=== PATIENT | female | born 1945 | race Caucasian/White ===

== ENCOUNTER → 2022-08-12 09:16 | Outpatient (BNVA) | payer OTHER, SELFPAY | PROVIDERS: PCP Internal Medicine; Visit Provider Nurse Practitioner Family | DX: R29.898 Other symptoms and signs involving the musculoskeletal system (principal); G20 Parkinson's disease ==

== ENCOUNTER 2022-12-09 09:23 | Outpatient (AMB) | payer OTHER, SELFPAY ==
[2022-12-09 09:25] VITALS: BP 110/72; PULSE 65; O2SAT 96; BMI 35.7
--- NOTE | 2022-12-09 09:25 | A.OFFVIS_ITS ---
Intake Vital Signs 12/09/22 09:25 Height 5 ft 3 in Weight 201 lb 8 oz BMI 35.7 BP 110/72 Blood Pressure Location Rt brachial Position Sitting Pulse 65 Pulse Source Pulse Oximeter Pulse Oximetry (%) 96 Oxygen Delivery Method Room Air Intake Visit Reasons: 4m f/upress in head/tremor/weakness - Confirmed Intake Note: Pt presents as a 4 month f/u. pt states things are the same. Physics Instructor Required: No Accompanied by: Daughter Allergies No Known Allergies Allergy (Verified 12/09/22 09:30) Medication List - Last Reconciled 12/09/22 by JULISSA Mg alendronate 70 mg PO QWEEK alprazolam 0.25 mg orally 1 tab 30 minutes prior to MRI, may repeat ix's 1; 1 day aspirin 81 mg PO DAILY atorvastatin 20 mg PO DAILY carbidopa-levodopa 25-100 mg 1 tab PO BID 30 days cholecalciferol (vitamin D3) 50 mcg PO DAILY docusate sodium (Dulcolax Stool Softener (docusate)) 100 mg PO DAILY PRN lisinopril 10 mg PO BID metoprolol succinate ER 25 mg PO DAILY multivitamin (Daily Multi-Vitamin tablet) 1 tab PO DAILY sennosides (senna) 8.6 mg PO DAILY HPI HPI Comments History of Present Illness Details 77 -yr-old female presents for f/u visit, accompanied by her dtr Pt denies any significant interval medical history changes. Pt's current PD medication regimen: CD-LD 25-100mg 1 tab bid- which is still helping Do medication effects last between doses: yes She is not having the head pressure sensation- states only occurs when her BP is elevated. ADL's: Ind but slow- has someone to help her if needed Swallowing: No issues Drooling: Some nocturnal drooling. Orthostatic lightheadedness: Can feel lightheadedness when stands up- so stands up slowly. But feels better since doing a course of vestibular tx. Constipation: Yes, she manages with her stool softeners- switches them from to time. Has GI consult in Dec. Freezing: None Stiffness: Stable Tremor: Some days tremor is just occasional, other days more noticeable. Falls: Nonel Hallucinations: None Memory: Stable- some forgetfulness at times Sleep: Wakes up 3-4 x's per night- then can easily fall back asleep. Exercise: Walking every day. PFSH Family History Father Throat cancer Mother Heart problem Brother Heart problem Hypertension Sister Heart problem Hypertension Social History (Updated 12/09/22 @ 09:32 by Keely Lehman CMA) Alcohol intake: never Patient Tobacco Use Status: Never used Tobacco Review of Systems Const All systems reviewed & are unremarkable except as noted in HPI and below Physical Exam Vital Signs: Last Vital Signs Pulse 65 12/09/22 09:25 BP 110/72 12/09/22 09:25 Pulse Ox 96 12/09/22 09:25 Oxygen Delivery Method Room Air 12/09/22 09:25 BMI result Body Mass Index 35.7 Const General: cooperative and no acute distress Resp Effort & Inspection: normal respiratory effort and able to speak in complete sentences Neuro Other: A&O Pleasant Affect Decreased expression with right upper and lower facial droop. RUE mild rest tremor No postural tremor. FFM- RUE mild bradykinesia Mild RUE tone. Foot taps- R > L mild bradykinesia. Slight stoop, no arm swing, short steps, steady gait. Assessment & Plan Assessment & Plan (1) Parkinson's disease: Code(s): G20 - Parkinson's disease (2) Constipation: Code(s): K59.00 - Constipation, unspecified Plan Continue Carbidopa-Levodopa 25-100mg 1 tab bid. Continue increased fluids, such as Gatorade (or equivilant) 16-20oz qd to usual fluid intake. Do foot taps prior to standing. Continue daily walks. Concur w/ GI consult Monitor migraine. Pt to f/u in 4 months or sooner with any new/worsening s/s. Coding Level of Care Code Est Pt Level 4 (28615) Diagnoses Parkinson's disease G20 Constipation K59.00
== END 2022-12-09 09:58 | disposition home or self-care (01) ==
PROVIDERS: Visit Provider Nurse Practitioner Family
DX: G20 Parkinson's disease (principal); K59.00 Constipation, unspecified
CPT/HCPCS: 99214

== ENCOUNTER → 2022-12-09 09:23 | Outpatient (BNVA) | payer OTHER, SELFPAY | PROVIDERS: Visit Provider Nurse Practitioner Family | DX: R25.1 Tremor, unspecified (principal); R29.898 Other symptoms and signs involving the musculoskeletal system; G20 Parkinson's disease ==

== ENCOUNTER 2023-04-07 07:54 | Outpatient (AMB) | payer OTHER, SELFPAY ==
[2023-04-07 07:55] VITALS: BP 126/80; PULSE 61; O2SAT 95; BMI 35.4
--- NOTE | 2023-04-07 07:55 | MHC.OFFVIS ---
Intake Vital Signs 04/07/23 07:55 Height 5 ft 3 in Weight 200 lb BMI 35.4 BP 126/80 Blood Pressure Location Rt brachial Position Sitting Pulse 61 Pulse Source Pulse Oximeter Pulse Oximetry (%) 95 Oxygen Delivery Method Room Air Intake Visit Reasons: 4m f/u press in head/tremor/weakness - Conf Intake Note: Patient presents for 4 month follow up. I think my condition is getting worse Allergies No Known Allergies Allergy (Verified 04/07/23 07:57) Medication List - Last Reconciled 04/07/23 by JULISSA Mg alendronate 70 mg PO QWEEK alprazolam 0.25 mg orally 1 tab 30 minutes prior to MRI, may repeat ix's 1; 1 day aspirin 81 mg PO DAILY atorvastatin 20 mg PO DAILY bisacodyl 5 mg PO BEDTIME carbidopa-levodopa 25-100 mg 1 tab PO BID 30 days cholecalciferol (vitamin D3) 50 mcg PO DAILY docusate sodium (Dulcolax Stool Softener (docusate)) 100 mg PO DAILY PRN lisinopril 10 mg PO BID metoprolol succinate ER 25 mg PO DAILY multivitamin (Daily Multi-Vitamin tablet) 1 tab PO DAILY sennosides (senna) 8.6 mg PO DAILY HPI HPI Comments History of Present Illness Details 77-yr-old female presents for f/u visit, accompanied by her dtr Pt denies any significant interval medical history changes. Pt's current PD medication regimen: CD-LD 25-100mg 1 tab bid- which is still helping Do medication effects last between doses: yes She is having episodes of head pressure (like her head will explode), feeling weak, lightheaded, sweating, and elevated BP (SBP up to 160s)- she has to lay down x's 1/2 hr or longer. This can occur once a day but can occur a couple of times a day. She has frequent head pressure. Sometimes takes an extra lisinopril of SBP is > 160. She has a h/o severe headaches not a/w photo/phonophobia or N/V prior to coming to the [place] 22 yrs ago. ADL's: Ind but slow- has someone to help her if needed- more so w/ bra, diaper, socks Swallowing: No issues Drooling: Some nocturnal drooling. Orthostatic lightheadedness: Can feel lightheadedness when stands up- so stands up slowly, also when BP is higher. Constipation: Yes, she manages with her stool softeners- switches them from to time. Saw GI- who tried a different tx- but pt returned to he rusual regimen. Freezing: None Stiffness: Stable Tremor: Tremor is more noticeable. Falls: None Hallucinations: None Memory: Stable- some forgetfulness at times Sleep: Wakes up 3-4 x's per night- then can easily fall back asleep. Exercise: Walking every day. PFSH Family History Father Throat cancer Mother Heart problem Brother Heart problem Hypertension Sister Heart problem Hypertension Social History Alcohol intake: never Patient Tobacco Use Status: Never used Tobacco Review of Systems Const All systems reviewed & are unremarkable except as noted in HPI and below Physical Exam Vital Signs: Last Vital Signs Pulse 61 04/07/23 07:55 BP 126/80 04/07/23 07:55 Pulse Ox 95 04/07/23 07:55 Oxygen Delivery Method Room Air 04/07/23 07:55 BMI result Body Mass Index 35.4 Const General: cooperative and no acute distress Resp Effort & Inspection: normal respiratory effort and able to speak in complete sentences Neuro Other: A&O Pleasant Affect Decreased expression with right upper and lower facial droop. RUE mild rest tremor No postural tremor. FFM- RUE mild bradykinesia Mild RUE tone. Foot taps- R > L mild bradykinesia. Slight stoop, no arm swing, short steps, steady gait. Assessment & Plan Assessment & Plan (1) Parkinson's disease without dyskinesia: Code(s): G20.A1 - Parkinson's disease without dyskinesia, without mention of fluctuations (2) Migraine without aura: Code(s): G43.009 - Migraine without aura, not intractable, without status migrainosus Plan For PD: Offered to increase CD-LD to 1 tab tid, however pt wants to think about it. For now, continue Carbidopa-Levodopa 25-100mg 1 tab bid. Continue increased fluids, such as Gatorade (or equivalent) 16-20oz qd to usual fluid intake. Continue daily walks. For Migraine: I believe pt's episodes of headcahe, weakness, elevated BP are migraine attacks in setting of near constant headache/migraine. I would avoid triptans d/t pt's h/o HTN, HLD, but speciifcally as these attacks are a/w elevated BP w/ SBP >160. Trial Ubrogepant (Ubrelvy) 100mg tab, 1/2 - 1 tab (50-100mg) at onset of headache, may repeat in 2 hours. Max of 2 tabs (200mg) per 24 hours. Pt to f/u in 4 months or sooner with any new/worsening s/s. Medications: New ubrogepant (Ubrelvy) take at onset of migraine, may repeat in 2hrs 50 - 100 mg (0.5 - 1 x 100 mg) PO ONCE 30 days PRN 16 tabs 3RF migraine headache G43.009 - Migraine without aura, not intractable, without status migrainosus Coding Level of Care Code Est Pt Level 4 (65407) Diagnoses Parkinson's disease without dyskinesia G20.A1 Migraine without aura G43.009
== END 2023-04-07 08:49 | disposition home or self-care (01) ==
PROVIDERS: PCP Internal Medicine; Visit Provider Nurse Practitioner Family
DX: G20.A1 Parkinson's disease without dyskinesia, without mention of fluctuations (principal); G43.009 Migraine without aura, not intractable, without status migrainosus
CPT/HCPCS: 99214

== ENCOUNTER → 2023-04-07 07:54 | Outpatient (BNVA) | payer OTHER, SELFPAY | PROVIDERS: PCP Internal Medicine; Visit Provider Nurse Practitioner Family | DX: R25.1 Tremor, unspecified (principal); R29.898 Other symptoms and signs involving the musculoskeletal system ==

== ENCOUNTER 2023-08-11 07:44 | Outpatient (AMB) | payer OTHER, SELFPAY ==
--- NOTE | 2023-08-11 07:56 | MHC.OFFVIS ---
Vital Signs 08/11/23 07:58 Height 5 ft 3 in Weight 200 lb BMI 35.4 BP 122/74 Blood Pressure Location Rt brachial Position Sitting Pulse 56 Pulse Source Pulse Oximeter Pulse Oximetry (%) 97 Oxygen Delivery Method Room Air Intake Visit Reasons: 4 mo f/u - press in head/tremor-CONF Intake Note: Patient presents for 4 month follow up. Patient has no new issues or concerns Allergies No Known Allergies Allergy (Verified 08/11/23 08:01) HPI Comments Details: 77 -yr-old female presents for f/u visit, accompanied by her dtr. Pt denies any significant interval medical history changes. Pt's primary concerns are: She was noticing increased tremor, and reached out to us. So we increased the CD-LD form 1 tab bid to tid, and tremor does seem to be better. However, she is having difficulty initiating sleep. States her RUE shakes so much she cannot fall asleep. Her PCP did offer her Nortriptyline 10mg, however she did not start as she wanted to discuss w/ us first. Bedtime is 11pm. Pt's current PD medication regimen: CD-LD 25-100mg 1 tab tid. at 9am, 3pm, 9pm. Do medication effects last between doses: usually She is still having episode of pressure headache. Has not had an episode in the last 2 weeks, but can occur 1-2 x's per week. Has rec'd Ubrelvy but has not tried it yet. Baseline headache characteristic: head pressure (like her head will explode), feeling weak, lightheaded, sweating, and elevated BP (SBP up to 160s)- she has to lay down x's 1/2 hr or longer. This can occur once a day but can occur a couple of times a day. She has frequent head pressure. Sometimes takes an extra lisinopril of SBP is > 160. And has a h/o severe headaches not a/w photo/phonophobia or N/V prior to coming to the [place] 22 yrs ago. ADL's: Needing more help. Her RUE seems weaker. Swallowing: No issues Drooling: Some nocturnal drooling. Orthostatic lightheadedness: Brief, mild. Standing carefully. Constipation: Trying to manage w/ diet, using stool softener prn. . Freezing: None Stiffness: Stable Tremor: as above Falls: None, but can feel unstable at times. Has a 4 wheeled seated walker- can use inside but not outside, as when the walker rolls over a bump- she feels it on her head. Hallucinations: None Memory: Stable- some forgetfulness at times Sleep: as above Exercise: Walking some. [facility] Medical History (Updated 08/11/23 @ 08:09 by JULISSA Mg) Parkinson's disease Family History Father Throat cancer Mother Heart problem Brother Heart problem Hypertension Sister Heart problem Hypertension Social History Alcohol intake: never Patient Tobacco Use Status: Never used Tobacco Review of Systems Const All systems reviewed & are unremarkable except as noted in HPI and below Physical Exam Vital Signs: Last Vital Signs Pulse 56 08/11/23 07:58 BP 122/74 08/11/23 07:58 Pulse Ox 97 08/11/23 07:58 Oxygen Delivery Method Room Air 08/11/23 07:58 BMI result Body Mass Index 35.4 Const General: cooperative and no acute distress Resp Effort & Inspection: normal respiratory effort and able to speak in complete sentences Neuro Other: A&O Pleasant Affect Decreased expression with right upper and lower facial droop. RUE mild rest tremor No postural tremor. FFM- RUE mild bradykinesia Mild RUE tone. Foot taps- R > L mild bradykinesia. Slight stoop, right shoulder dropped, no arm swing, short steps, steady gait. 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 If this does not help the nocturnal tremor, increase to 1 tab qid (w/ last dose at bedtime). May trial Nortriptyline 10mg qhs for sleep- may help headaches as well. Monitro for worsening constipation. Continue increased fluids, such as Gatorade (or equivalent) 16-20oz qd to usual fluid intake. Continue stool softeners prn. Continue daily walks. Will request OT- for RUE tremors and ADL. Pt should establish care w/ a bun panner for routine skin checks owing to slight increased risk for skin cancer in PD. ? For Migraine: Try Ubrogepant (Ubrelvy) 100mg tab, 1/2 - 1 tab (50-100mg) at onset of headache, may repeat in 2 hours. Max of 2 tabs (200mg) per 24 hours. ? Pt to f/u in 4-6 months or sooner with any new/worsening s/s. Orders: Orders OT Evaluation and Treatment Today G20.A1 - Parkinson's disease without dyskinesia, without mention of fluctuations, R25.1 - Tremor, unspecified
[2023-08-11 07:58] VITALS: BP 122/74; PULSE 56; O2SAT 97; BMI 35.4
== END 2023-08-11 08:42 | disposition home or self-care (01) ==
PROVIDERS: PCP Internal Medicine; Visit Provider Nurse Practitioner Family
DX: G20.A1 Parkinson's disease without dyskinesia, without mention of fluctuations (principal); G43.009 Migraine without aura, not intractable, without status migrainosus
CPT/HCPCS: 99214

== ENCOUNTER → 2023-08-11 07:44 | Outpatient (BNVA) | payer OTHER, SELFPAY | PROVIDERS: PCP Internal Medicine; Visit Provider Nurse Practitioner Family ==

== ENCOUNTER 2024-02-16 08:00 | Outpatient (AMB) | payer OTHER, SELFPAY ==
--- NOTE | 2024-02-16 07:59 | MHC.OFFVIS ---
Vital Signs 02/16/24 08:00 Height 5 ft 3 in Weight 198 lb 2 oz BMI 35.1 BP 116/90 H Blood Pressure Location Lt brachial Position Sitting Pulse 58 Pulse Source Pulse Oximeter Pulse Oximetry (%) 94 Oxygen Delivery Method Room Air Intake Visit Reasons: 4 mo f/u - press in head/tremor-CONF Director Of Consumer Affairs Required: No Package Delivery Driver: Package Delivery Driver Present Accompanied by: Daughter Allergies No Known Allergies Allergy (Verified 02/16/24 08:05) HPI Comments Details: 78-yr-old female presents for f/u visit, accompanied by her dtr. Pt reports she has been having Bilateral L > R shoulder pain, X-ray was normal, and she has been referred to ortho- awaiting for an appt. Right has been better since doing PT, but left is worse. Pt's primary concerns are: She is feeling more weak- difficulty getting OOB and into bed. She is noticing her RUE feels weaker. She is having more difficulty initiating walking. Sometimes better than others. Pt's current PD medication regimen: CD-LD 25-100mg 1 tab tid at 9am, 3pm, 9pm. (eats meals 30 min after doses) ADL's: Needing help. Her RUE seems weaker. Swallowing: No issues Drooling: Some nocturnal drooling. Orthostatic lightheadedness: None- but standing up slowly. Constipation: Trying to manage w/ diet, using stool softener prn which helps. Freezing: Possibly Stiffness: As above Tremor: as above Falls: None. Has a 4 wheeled seated walker- can use inside but not outside, as when the walker rolls over a bump- she feels it on her head. Hallucinations: Maybe sometimes feels like something has passed by her. Memory: Stable- some forgetfulness at times Sleep: waking up 2-3 x's a night, sometimes cannot fall easily back asleep. May lay down frequently during the day. Just occasional dozes off for a few minutes. Exercise: Walking some about 2000 steps a day. She had home PT, but it is hard to do the arm exercises. She has not been having any recent pressure headache. States only has head heaviness when her BP is higher- but BP has been better as well. Has rec'd Ubrelvy but has not tried it yet. Baseline headache characteristic: head pressure (like her head will explode), feeling weak, lightheaded, sweating, and elevated BP (SBP up to 160s)- she has to lay down x's 1/2 hr or longer. This can occur once a day but can occur a couple of times a day. She has frequent head pressure. Sometimes takes an extra lisinopril of SBP is > 160. And has a h/o severe headaches not a/w photo/phonophobia or N/V prior to coming to the [place] 22 yrs ago. [facility] Medical History Parkinson's disease Family History Father Throat cancer Mother Heart problem Brother Heart problem Hypertension Sister Heart problem Hypertension Social History Alcohol intake: never Patient Tobacco Use Status: Never used Tobacco Physical Exam Vital Signs: Last Vital Signs Pulse 58 02/16/24 08:00 BP 116/90 H 02/16/24 08:00 Pulse Ox 94 02/16/24 08:00 Oxygen Delivery Method Room Air 02/16/24 08:00 BMI result Body Mass Index 35.1 Const General: cooperative and no acute distress Resp Effort & Inspection: normal respiratory effort and able to speak in complete sentences Neuro Other: A&O Pleasant Affect Decreased expression with right upper and lower facial droop. RUE mild rest tremor No postural tremor. FFM- RUE mild bradykinesia Mild RUE tone. Foot taps- R > L mild bradykinesia. Slight stoop, right shoulder dropped, no arm swing, shorter steps, steady gait. 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 For now, continue CD-LD to 1 tab tid. Continue increased fluids, such as Gatorade (or equivalent) 16-20oz qd to usual fluid intake. Continue stool softeners prn. Continue daily walks. Will request OT- for RUE tremors and ADL. Pt should establish care w/ a home health care physician for routine skin checks owing to slight increased risk for skin cancer in PD. ? For Migraine: If returns, try Ubrogepant (Ubrelvy) 100mg tab, 1/2 - 1 tab (50-100mg) at onset of headache, may repeat in 2 hours. Max of 2 tabs (200mg) per 24 hours. ? Pt to f/u in 4-6 months or sooner with any new/worsening s/s. Coding Level of Care Code Est Pt Level 4 (00654) Diagnoses Parkinson's disease without dyskinesia G20.A1 Migraine without aura G43.009 Tremor R25.1
[2024-02-16 08:00] VITALS: BP 116/90; PULSE 58; O2SAT 94; BMI 35.1
== END 2024-02-16 08:59 | disposition home or self-care (01) ==
PROVIDERS: PCP Internal Medicine; Visit Provider Nurse Practitioner Family
DX: G20.A1 Parkinson's disease without dyskinesia, without mention of fluctuations (principal); G43.009 Migraine without aura, not intractable, without status migrainosus; R25.1 Tremor, unspecified
CPT/HCPCS: 99214

== ENCOUNTER → 2024-02-16 08:00 | Outpatient (BNVA) | payer OTHER, SELFPAY | PROVIDERS: PCP Internal Medicine; Visit Provider Nurse Practitioner Family | DX: G20.A1 Parkinson's disease without dyskinesia, without mention of fluctuations (principal); R25.1 Tremor, unspecified; G43.009 Migraine without aura, not intractable, without status migrainosus ==

== ENCOUNTER 2024-08-30 09:15 | Outpatient (AMB) | payer OTHER, SELFPAY ==
--- OUTSIDE RECORDS SUMMARY | 2024-08-30 09:30 | XMS_ITS | Data Portability ---
Author Organization [facility] Aguila Rebolledo [facility], [facility] Address [address] [place] [address] Care Team Providers Care Professional Sports Scout Name Role Phone JOSE CARLOS CRUZ Primary Care Provider Assessment Encounter Date Assessment Date Assessment LastModified by Organization Details LastModified Time 02/19/2024 02/19/2024 Dx:Left shoulder pain, radiculitis vversus rotator cuff origin Interval History:78-year-old woman, several month history of atraumatic onsset left shoulder pain, difficulty using the arm. Has right-sided Parkinson's and so she is dependent on the left side for activity. SocHx: nonsmoker, nondrinker Past Medical/Surgical History/Meds/Allerg ies reviewed and charted ROS: negative Physical Exam: afebrile, vital signs stable, in no apparent distress, oriented to person/place/time. Gait symmetric. Skin intact without erythema. Heart RRR Lungs: clear Abdomen soft, nontender. LeftSHOULDER: no redness, warmth, deformity. Range of motion Limited by pain, minimal active motion. Strength 5/5 all muscle groups. Apprehension negative. Impingement sign Positive. Acromioclavicular joint nontender without irritability with cross body adduction. Neurovascular Exam wnl. Contralateral SHOULDER: no redness, warmth, deformity. Range of motion full in all planes with no stiffnes. Strength 5/5 all muscle groups. Apprehension negative. Impingement sign negative. Acromioclavicular joint nontender without irritability to cross body adduction. Neurovascular Exam wnl. New Studies: Multiple views left shoulder benign, no GH arthritis, no head migration. Cervical lateral shows advanced C4-5-6-7 collapse Impression:Left shoulder pain, rotator cuff origin versus neurogenic Plan: 1.Diagnostic/therap eutic injection performed subacromial left shoulder 2. Follow-up 1 week to check response to injection, move forward wiith cervical or shoulder advanced imaging as indicated [facility] speech recognition cnc service engineer software was used to create portions of this document. An attempt at proofreading has been made to minimize errors. Please call for corrections. [email or web address] Not available 02/19/2024 10:15:17 Plan of Treatment Reminders Order Date Submit Date Provider Last Modified By Organization Details Last Modified Time Details Appointments None recorded. Lab None recorded. Referral physical therapist referral - early degenerativ e cuff ROM and impingement ptogram [address] [facility], [address] [place] [address], [place], [address], 5 13:17:11 Procedures None recorded. Surgeries None recorded. Imaging MRI, shoulder, w/o contrast - question Left shoulder rotator cuff tear 2023 024 [facility] ([facility] [address], [place], [address], 4 12:06:51 XR, shoulder, 2 or more view - room 211, left shoulder, axillary and outlet only 2023 024 [email or web address] [facility], [address], [address], [place], [address], 4 16:06:12 XR, cervical spine, 1 view - room 211, lateral c spine 2023 024 [email or web address] [facility], [address], [address], [place], [address], 4 16:06:12 Medication Orders None recorded. Patient TargetsNo targets recorded. Patient InstructionsNo instructions recorded. Reason for Referral Physical Therapist Referral for Rotator cuff arthropathy of left shoulder early degenerative cuff ROM and impingement ptogram Referring Physician: Kendall Randhawa, Orthopedic Surgery, Encounter Date: 05/10/2024 Results Created Date Observation Date Name Description Value Unit Range Abnormal Flag Note LastModifiedBy Organization Detail LastModifiedTime 02/19/20 24 02/19/2024 XR, dorcas genao, 2 or more view [email or web address]:/ [email or web address] ?Encry pted=s hAaTro YD8dLq bEUv6g %2BXZw aYqtaq 0bqfl% 2Fg9IQ a4ajBk vP9nXo QUaueC m3YtLR FvZlgJ JJ8mAn HZtai3 7r3319 AC0Kqa H%2BFV aSjKiQ trMwF INTERFACE [facility] [address], [place], [address], 02/19/2024 10:04:26 02/19/20 24 02/19/2024 XR, dorcas genao, 2 or more view [email or web address] ?Encry pted=s hAaTro YD8dLq bEUv6g %2BXZw aYqtaq 0bqfl% 2Fg9IQ a4ajBk vP9nXo QUaueC m3YtLR FvZlgJ JJ8mAn HZtai3 4j8467 AC0Kqa H%2BFV aSjKiQ trMwF INTERFACE [facility] [address], [place], [address], 02/19/2024 10:04:27 02/19/20 24 02/19/2024 XR, cervi shani spine , 1 view [email or web address] ?Encry pted=s hAaTro YD8dLq bEUv6g %2BXZw aYqtaq 0bqfl% 2Fg9IQ a4ajBk vP9nXo QUaueC m3YtLR FvZlgJ JJ8mAn HZtai3 4o8970 AC0Kqa H%2BFV auhKiQ trMwF INTERFACE [facility] [address], [place], [address], 02/19/2024 10:05:08 02/19/20 24 02/19/2024 XR, cervi shani spine , 1 view [email or web address] ?Encry pted=s hAaTro YD8dLq bEUv6g %2BXZw aYqtaq 0bqfl% 2Fg9IQ a4ajBk vP9nXo QUaueC m3YtLR FvZlgJ JJ8mAn HZtai3 6a9891 AC0Kqa H%2BFV auhKiQ trMwF INTERFACE [facility] [address], [place], [address], 02/19/2024 10:05:10 04/08/20 24 04/06/2024 MRI, dorcas genao, w/o contr ast [facility] Access ion Number : [id number] Patien t Name: Debbie Oneil Record Number : [id number] Date of : 1945 Date of Exam: 2023 Referr ing Physic desiree: [facility] [address] [place] [address] Exam: MR Should er (C-) CPT 95562 - Left Room Descri ption: [facility] 3.0T Clinic al Histor y: Strain of muscle /tendo n of the rotato r cuff of the left should er, questi on rotato r cuff tear. The patien t report s modera te daily left should er pain for 6 to 7 months . Techni que: MRI of the left should er was perfor med withou t intrav enous contra st. Compar martinez: None. Findin gs: Rotato r cuff: There is tendin opathy of supras pinatu s with low-gr humaira bursal surfac e partia l tear of the footpr int measur ing 4 mm. There is mild tendin opathy of subsca pulari s. The infras pinatu s and teres minor tendon s are intact . There is normal muscle bulk. Glenoi d labrum and biceps tendon : Fairly diffus e degene ration of the labrum . The biceps tendon is in the groove . AC joint: There is mild bony prolif eratio n and subcho ndral marrow edema at the acromi oclavi cular joint. Articu lar cartil age and bone: There is chondr al thinni ng and mild subcho ndral marrow edema the inferi or glenoi d. There is mild bony prolif eratio n of the inferi or aspect of the wale l head neck juncti on with associ ated mild marrow edema and overly ing irregu lar chondr al thinni ng. No signif icant glenoh umeral joint effusi on. There is mild synovi tis in the subsca pulari s recess . Impres kody: 1. Supras pinatu s tendin opathy with low-gr humaira bursal surfac e partia l tear of its footpr int. 2. Tendin opathy of subsca pulari s. 3. Mild glenoh umeral and acromi oclavi cular degene rative change . Electr onical ly Signed By: Marianela Florentino ra, MD [email or web address] [facility] ([facility]) [address], [place], [address], 04/09/2024 08:50:09 Result Notes None recorded. Problems Name Problem SNOMED Code Status Onset Date Resolution Date Notes Provider Name and Address Organization Details Recorded Time No complaints 224441630 Active Status : 'A'; Not Available [facility] 4 09:21:47 Problem Notes None recorded. Procedures Surgical History Date Name Laterality Status Provider Name and Address Organization Details Recorded Time 5 Sports Shoulder completed Kendall Randhawa PA-C [address], [place], [address], [facility] 07/11/2024 09:34:27 4 Sports Shoulder 4&1 completed Zion Li MD [address], [place], [address], [facility] 02/19/2024 10:15:48 Imaging Results Imaging Date Name Status LastModified by Organiz ation Details LastModified Time 02/19/2024 XR, shoulder, 2 or more view completed INTERFACE [facility] [address], [place], [address], 02/19/2024 10:04:26 02/19/2024 XR, shoulder, 2 or more view completed INTERFACE [facility] [address], [place], [address], 02/19/2024 10:04:27 02/19/2024 XR, cervical spine, 1 view completed INTERFACE [facility] [address], [place], [address], 02/19/2024 10:05:08 02/19/2024 XR, cervical spine, 1 view completed INTERFACE [facility] [address], [place], [address], 02/19/2024 10:05:10 04/06/2024 MRI, shoulder, w/o contrast completed [email or web address] [facility] ([facility]) [address], [place], [address], 04/09/2024 08:50:09 Procedure Notes None recorded. Medical Equipment None Reported. Allergies No known drug allergies Medications Name Sig Start Date Stop Date Status Note LastModified by Organization Details LastModified Time carbidopa 10 mg-levodopa 100 mg tablet Take 1 tablet 3 times a day by oral route. active Not Available Not Available No t Available atorvastatin active Not Available Not Available Not Available lisinopril active Not Available Not Av ailable Not Available metoprolol succinate active Not Available Not Available No t Available Vitamin D3 active Not Available Not Av ailable Not Available aspirin 81 mg capsule Take 1 capsule every day by oral route. active Not Available Not Available No t Available Vitals Date Recorded Body height Body mass index (BMI) Body weight Provider Name and Address Organization Details Last Updated DateTime 02/19/2024 160.02 cm 34.9 kg/m2 90030.7 g Ambika Joy [place] [facility] 02/19/2024 09:54:18 Date Recorded Body height Body mass index (BMI) Body weight Provider Name and Address Organization Details Last Updated DateTime 03/08/2024 160.02 cm 34.9 kg/m2 99593.7 g Jolene Levy [facility] 03/08/2024 08:33:24 Date Recorded Body height Body mass index (BMI) Body weight Provider Name and Address Organization Details Last Updated DateTime 05/10/2024 160.02 cm 34.9 kg/m2 70465.7 g Jolene Levy [facility] 05/10/2024 12:58:37 Social History None recorded. Functional Status None recorded. Mental Status None recorded. Family History Nothing Reported. Medical History Condition Response Allergies/Hayfever N Coronary Artery Disease N Breathing or lung disorders N Anxiety/Depression N Emphysema N Nerve Disorders N Thyroid Problems N COPD N Pacemaker N Anemia N Kidney/Bladder Problems N Vascular Disease N Heart Trouble N Heart Attack (IA) N Gastrointestinal Disease N Cholesterol N Diabetes N Autoimmune disease N Bleeding Disorder N Inflammatory Joint disease N Orthotics N Arthritis Y Seizures/Epilepsy N Blood Clot N AIDS/HIV N Congestive Heart Failure (CHF) N Acid Reflux (GERD) N Cancer N Stroke N Asthma N Circulation Problems N Peripheral Vascular Disease N Sleep Apnea N Hepatitis N Heart Disease N Rheumatoid Arthritis N Arrhythmia N Pulmonary Embolism N Headaches Y Fibromyalgia N Hypertension Y Osteoporosis N Gynecological HistoryNo gynecological history recorded. Obstetrics History GPAL:G 0 P 0 0 0 0 Past Encounters Encounter ID Performer Location Encounter Start Date Encounter Closed Date Diagnosis/Indication Diagnosis SNOMED-CT Code Diagnosis ICD10 Code Diagnosis Note [id number] Zion Li MD [facility] 2nd floor [address] [facility] [place] [address] 02/19/2024 09:36:36 03/13/2024 16:06:12 Pain of left shoulder joint 0816037807 0879156 M25.434 [id number] [place] [address] 03/08/2024 08:22:52 04/09/2024 12:06:51 Traumatic left rotator cuff tear 1035422410 8102394 S46.012D [id number] [facility] [address] [place] [address] 05/10/2024 12:43:38 07/31/2024 09:17:10 Rotator cuff arthropathy of left shoulder 2234679061 5447271 M12.812 Health Concerns Section Related Observation LastModified by Organization Detai ls LastModified Time None Recorded Concern Status LastModified by Organization Details LastModified Time None Recorded Advance Directives Directive None Recorded Payers Encounter Date Sequence Insurance Name Policy Number Policy Meeks Covered Member ID Meeks Member ID Guarantor Name 02/19/2024 1 [employer] [place] - [place] (MEDICARE REPLACEMENT/A DVANTAGE - HMO) Debbie Oneil [id number] Debbie Oneil 03/08/2024 1 [employer] [place] DV[place]AGE - [place]MO) Debbie Thad [id number] Debbie Oneil 05/10/2024 1 [employer] [place] DVANTAGE - [place]MO) Debbie Oneil [id number] Debbie Oneil Notes Date Note Type Note Provider Name and Address Organization Details Recorded Time 03/08/2024 text/html I am seeing the patient today under the supervision of Dr. Calzada who was available but who did not see the patient.Ms. Avilez returns for evaluation of her left shoulder. Seen initially by Dr. Li, where he performed a subacromial steroid injection. With the help of a family member as sound designer, she reports the injection provided significant help in overall pain and can certainly use her arm with less pain at this time. Still has difficulty raising her using the arm. She also reports similar difficulty raising the right arm. He had suggested obtaining an MRI to determine the source of injury either cervical or shoulder depending on today's evaluation.Past family, medical, social history and review of systems has been reviewed, updated and signed by me and is located in the patient? s chart.Examination: Still guarded and hesitant to perform range of motion of the shoulders, however left shoulder can be fully elevated with only minimal discomfort. Significant weakness with rotator cuff resistance. Deltoid was grossly intact. No evidence of instability. 2+ pulsesImpression: Strong concern for rotator cuff tear left shoulderPlan: With the help of family member as a sound designer, we discussed obtaining an MRI of the left shoulder for thorough evaluation. High likelihood of rotator cuff injury. We did discuss potential surgical treatment options which vary between arthroscopic versus reverse shoulder arthroplasty. We also discussed conservative care to include occasional injections. She will follow up with Dr. iL after results of the MRI. Kendall Randhawa PA-C [address], [place], [address], [facility] 03/08/2024 08:45:38 05/10/2024 text/html I am seeing the patient today under the supervision of Dr. Hernandez who was available but who did not see the patient.Ms. Avilez returns in follow-up after obtaining an MRI of the left shoulder. Concern for rotator cuff injury. She continues to have pain to the lateral aspect of the shoulderMRI interpreted independently reviewed at length today demonstrates no evidence of full-thickness tear. There was significant rotator cuff tendinopathy throughout the supraspinatus and infraspinatus. Biceps appeared to be split longitudinally with associated tendinopathy. Early glenohumeral arthritisPast family, medical, social history and review of systems has been reviewed, updated and signed by me and is located in the patient? s chart.Examination:, Painful arc of motion, left shoulder, positive impingement arc, positive impingement signs. Weakness with rotator cuff resistance. No instability.Impressi on: Persistent left shoulder pain secondary to significant rotator cuff tendinopathy, early degenerative arthrosis of the glenohumeral jointPlan: Reviewed and discussed treatment options. Elected to repeat injection today. Follow-up in [address] Li. PT prescription provided. Kendall Randhawa PA-C [address], [place], [address], [facility] 07/11/2024 09:34:31 OBGyn Episode No OBEpisode recorded.
--- NOTE | 2024-08-30 09:33 | MHC.OFFVIS ---
Vital Signs 08/30/24 09:34 Height 5 ft 3 in Weight 196 lb BMI 34.7 BP 110/60 Blood Pressure Location Rt brachial Pulse 64 Pulse Source Pulse Oximeter Pulse Oximetry (%) 94 Oxygen Delivery Method Room Air Intake Visit Reasons: Follow Up Hydraulic Blocker Required: No Hydraulic Blocker Name: Daughter translated Accompanied by: Daughter Allergies No Known Allergies Allergy (Verified 08/30/24 09:37) Medication List - Last Reconciled 08/30/24 by JULISSA Mg aspirin 81 mg PO DAILY atorvastatin 20 mg PO DAILY bisacodyl 5 mg PO BEDTIME carbidopa-levodopa 25-100 mg ER 1 tab PO TID 30 days cholecalciferol (vitamin D3) 50 mcg PO DAILY docusate sodium (Dulcolax Stool Softener (docusate)) 100 mg PO DAILY PRN lisinopril 10 mg PO BID metoprolol succinate ER 25 mg PO DAILY multivitamin (Daily Multi-Vitamin tablet) 1 tab PO DAILY sennosides (senna) 8.6 mg PO DAILY ubrogepant (Ubrelvy) 50 - 100 mg (0.5 - 1 x 100 mg) PO ONCE PRN 30 days HPI Comments Details: 78-yr-old female presents for f/u visit, accompanied by her dtr. Billie Pt reports her Bilateral L > R shoulder pain is improved after having chiropractic tx, after having a couple of unsuccessful cortsiosone injections through ortho. Pt's primary concerns are: She still feels weak and easily fatigued, though was walking better after chiropractic tx. Pt's current PD medication regimen: Since the last visit, patient's daughter had called requesting adjustment in CD LD as patient was having hallucinations, we did change the CD-LD from CD-LD IR 25-100mg 1 tab tid at 9am, 3pm, 9pm. (eats meals 30 min after doses) to CD-LD ER 25-100mg- pt has not noticed any change. ADL's: Needing help. Her RUE still seems weaker- difficulty picking small items or putting something in her pocket. Swallowing: Sometimes may cough when eating or drinking- not actually choking. Drooling: Some occasional nocturnal drooling. Orthostatic lightheadedness: None- but standing up slowly. Constipation: Does have constipation- manages w/ diet, using stool softener prn which helps. Stiffness: As above Tremor: as above Freezing: mild at onset of walking Gait: Short steps, then feet will go wide to steady herself. Walks in the house- tries to walk w/o walker. Sometimes using the 4-wheeled in her home (does not use outside due to when the walker rolls over bumps- it bothers her head). Holds onto someone when Falls: None. Hallucinations: At night time, when she wakes up it looks like someone is standing there and then goes away- almost like in a dream. Memory: Stable- dtr states very good. But speech is a bit slower/softer Sleep: Overall sleeps ok, but wakes up 2-3 x's a night, sometimes easily falls back asleep but other nights cannot fall easily back asleep. Denies intentional naps, but may take cat naps when sitting. May have difficulty rolling over in bed, but does have a bed rail. She has had an HST- showed some hypoxemia, so was referred for in-lab PSG at [facility] however unfortunately she only slept x's 15 minutes. Had PFTs which were normal. Exercise: Walking daily - now about 2000 steps per day. She reports she is having an occasional pressure headache- last was 3 days ago. States only has head heaviness when her BP is higher which is a/w mild increasing swelling when BP > 130/80. Notes that when she takes a water pill, the she feels better and headache resolves. PCP just adjusted BP tx- added prn torsemide, and stopped prn spirinolactone/HCTZ. BP is normotensive today. Has rec'd Ubrelvy but has not tried it yet. Baseline headache characteristic: head pressure (like her head will explode), feeling weak, lightheaded, sweating, and elevated BP (SBP up to 160s)- she has to lay down x's 1/2 hr or longer. This can occur once a day but can occur a couple of times a day. She has frequent head pressure. Sometimes takes an extra lisinopril of SBP is > 160. And has a h/o severe headaches not a/w photo/phonophobia or N/V prior to coming to the [place] 22 yrs ago. [facility] Medical History Parkinson's disease Family History Father Throat cancer Mother Heart problem Brother Heart problem Hypertension Sister Heart problem Hypertension Social History Alcohol intake: never Patient Tobacco Use Status: Never used Tobacco Physical Exam Vital Signs: Last Vital Signs Pulse 64 08/30/24 09:34 BP 110/60 08/30/24 09:34 Pulse Ox 94 08/30/24 09:34 Oxygen Delivery Method Room Air 08/30/24 09:34 BMI result Body Mass Index 34.7 Const General: cooperative and no acute distress Resp Effort & Inspection: normal respiratory effort and able to speak in complete sentences Neuro Other: A&O Pleasant Affect Decreased expression with right upper and lower facial droop. Voice is softer Speech is a bit slower pace- not quite bradyphrenic. RUE mild rest tremor No postural tremor. FFM- RUE mild bradykinesia RUE tone. Very mild left elbow tone. Foot taps- R > L bradykinesia. Slow to stand, slight stoop, right shoulder dropped, no arm swing, shorter steps, slight right high step, multiple steps to turn, steady gait. 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 Suggested trying to reduce only the morning dose of levodopa, however patient still declines. Offered Rytary as an alternate, which at times can have lower risk for side effects, however patient states she can not swallow capsules easily- did explain that these capsules can be opened and placed in soft food of choice. Patient also is not interested in trying medication to suppress hallucinations. For now, continue carbidopa levodopa ER 25-100 mg 1 tab t.i.d. Continue increased fluids, such as Gatorade (or equivalent) 16-20oz qd to usual fluid intake. Continue stool softeners prn. Continue daily walks. Pt should establish care w/ a parachute line tier for routine skin checks owing to slight increased risk for skin cancer in PD. ? For Migraine: Torsemide 5 mg p.r.n.- ordered by PCP. May try Ubrogepant (Ubrelvy) 100mg tab (patient has supply at home), 1/2 - 1 tab (50-100mg) at onset of headache, may repeat in 2 hours. Max of 2 tabs (200mg) per 24 hours. For sleep difficulties and daytime sleepiness: Advised to use a night light in her bedroom, this may lessen the impact of the nocturnal hallucinations. Advised to sleep with head elevated- patient states she sleeps on 2 pillows. Patient does have a bed rail to assist with bed mobility. We will request both home sleep study and in-lab PSG studies done at [facility]. Discussed that patient could repeat in-lab sleep study with pretreatment with the sleep medication, however patient declines. Consider overnight pulse oximetry study to further assess noctural hypoxemia- will defer to PCP. ? Pt to f/u in 6 months or sooner with any new/worsening s/s. Medications: New torsemide 5 mg PO QAM PRN Coding Level of Care Code Est Pt Level 4 (10619) Complex EM visit Add On G2211 Diagnoses Parkinson's disease without dyskinesia or fluctuating manifestations G20.A1 Fluctuating manifestations: without fluctuating manifestations Tremor R25.1 Sleep difficulties G47.9 Hypnopompic hallucination R44.2 Migraine without aura and without status migrainosus, not intractable G43.009 Status migrainosus presence: without status migrainosus Intractability: not intractable
[2024-08-30 09:34] VITALS: BP 110/60; PULSE 64; O2SAT 94; BMI 34.7
== END 2024-08-30 10:37 | disposition home or self-care (01) ==
LOC: HO.HSMS 09:16
PROVIDERS: PCP Internal Medicine; Visit Provider Nurse Practitioner Family
DX: G20.A2 Parkinson's disease without dyskinesia, with fluctuations (principal); G47.9 Sleep disorder, unspecified; R44.2 Other hallucinations; G43.009 Migraine without aura, not intractable, without status migrainosus
CPT/HCPCS: 99214; G2211

== ENCOUNTER → 2024-08-30 09:15 | Outpatient (BNVA) | payer OTHER, SELFPAY | PROVIDERS: PCP Internal Medicine; Visit Provider Nurse Practitioner Family ==